=== PATIENT | female | born 1965 | race Hispanic/Latino ===

== ENCOUNTER 2020-02-28 10:21 | Outpatient (CLI) | payer OTHER ==
--- NOTE | 2020-02-28 10:52 | MMO ---
Bilateral MAMMO Bilat Screen [facility]. CLINICAL HISTORY: Patient is 55 years old and is seen for screening. The patient has no family history of breast cancer. The patient has no personal history of cancer. VIEWS: The views performed were: bilateral craniocaudal with tomosynthesis and bilateral mediolateral oblique with tomosynthesis. FILMS COMPARED: No prior imaging studies are available for comparison. This study has been interpreted with the assistance of computer-aided detection. MAMMOGRAM FINDINGS: There are scattered fibroglandular densities. There are no suspicious masses, suspicious calcifications, or areas of architectural distortion. IMPRESSION: THERE IS NO MAMMOGRAPHIC EVIDENCE OF MALIGNANCY. A ROUTINE FOLLOW-UP MAMMOGRAM IN 1 YEAR IS RECOMMENDED. THE RESULTS OF THIS EXAM WERE SENT TO THE PATIENT. ACR BI-RADS Category 1 - Negative MAMMOGRAPHY NOTE: 1. A negative mammogram report should not delay a biopsy if a dominant of clinically suspicious mass is present. 2. Approximately 10% to 15% of breast cancers are not detected by mammography. 3. Adenosis and dense breasts may obscure an underlying neoplasm. Reported by: JASPAL GRAHAM MD Electonically Signed: [id number]
== END 2020-02-28 10:22 | disposition home or self-care (01) ==
LOC: BICMAMMO 10:21
PROVIDERS: ATTEND Preventive Medicine Preventive Medicine/Occupational Environmental Medicine
DX: Z12.31 Encounter for screening mammogram for malignant neoplasm of breast (principal)
CPT/HCPCS: 77063; 77067

== ENCOUNTER 2020-03-20 09:41 | Day surgery (SDC) | payer OTHER ==
--- NOTE | 2020-03-19 06:42 | HP ---
HISTORY OF PRESENT ILLNESS: Beata Arroyo is a 55-year-old female, [place]-speaking only, presents for laparoscopic cholecystectomy due to symptomatic gallstones. The patient has had an ultrasound of her gallbladder on 03/09/2020, noting gallstones with normal bile duct caliber. Laboratory with CBC and comprehensive metabolic on 02/21/2020 are normal. ALLERGIES: NONE. SOCIAL HISTORY: Tobacco, none. Alcohol, none. PAST SURGICAL HISTORY: Noncontributory. PAST MEDICAL HISTORY: Noncontributory. REVIEW OF SYSTEMS: Ten-point noncontributory. FAMILY HISTORY: Noncontributory. PHYSICAL EXAMINATION: VITAL SIGNS: Weight 163 pounds, height 64 inches, blood pressure 139/76, heart rate 71, and temperature 97.5 degrees. HEAD, EARS, EYES, NOSE, AND THROAT: Unremarkable. Sclerae nonicteric. LUNGS: Clear to auscultation. CARDIAC: Regular rate and rhythm without murmur or gallop. ABDOMEN: Soft. Tenderness in the right lower quadrant, minimal. EXTREMITIES: Unremarkable. No ankle edema. SKIN: Nonjaundiced. ASSESSMENT AND PLAN: 1. Symptomatic cholecystitis. 2. Chronic biliary colic. 3. Cholelithiasis. Recommend laparoscopic video cholecystectomy. We will plan this as an outpatient next week. She has had recent labs and do not need to repeat them. Job ID: [id number]
[2020-03-19 11:45] VITALS: BMI 30.8
[~2020-03-20 09:41] MED LIST: Dexamethasone 20 MG/5 ML VIAL ONE; Lidocaine 1% PF 5 ML VIAL ONE; Metoclopramide HCl 10 MG/2 ML VIAL ONE; Ondansetron PF 4 MG/2 ML Vial ONE; PROPOFOL 200 MG/20 ML VIAL ONE; Rocuronium Bromide 10 MG/ML (10ML VIAL) ONE
[2020-03-20] MEDS ORDERED: Levofloxacin 500 mg/D5W 100 ml Premix Bag ONE (10:14)
[2020-03-20] MEDS ORDERED: Scopolamine 1.5 mg/72 hour Patch ONE (10:14)
[2020-03-20] MEDS ORDERED: Ketorolac Tromethamine 30 MG/ML VIAL ONE (10:14)
[2020-03-20] MEDS ORDERED: Acetaminophen 500 MG TAB ONE (10:14)
[2020-03-20] MEDS ORDERED: Lidocaine 1% w/Epinephrine 1:100K 20 ML VIAL ONE (10:50)
[2020-03-20] MEDS ORDERED: Bupivacaine PF 0.5% 30 ML VIAL ONE (10:50)
[2020-03-20] MEDS ORDERED: SUGAMMADEX SODIUM 200 MG/2 ML VIAL ONE ×2 (10:54→11:39)
[2020-03-20] MEDS ORDERED: Fentanyl 100 MCG/2 ML VIAL ONE ×3 (10:54→12:15)
[2020-03-20] MEDS ORDERED: Famotidine/PF 20 mg/2ml Vial ONE (10:54)
--- NOTE | 2020-03-20 16:50 | OP ---
DATE OF PROCEDURE: 03/20/2020 PREOPERATIVE DIAGNOSES: Chronic cholecystitis, cholelithiasis. POSTOPERATIVE DIAGNOSES: Chronic cholecystitis, cholelithiasis. PROCEDURE PERFORMED: Laparoscopic video cholecystectomy. ANESTHESIA: General, local of 0.5% Marcaine 30 mL mixed with 1% Xylocaine with epinephrine 20 mL. DESCRIPTION OF PROCEDURE: The patient was taken to the operating room, where under general anesthesia, abdomen was prepared with ChloraPrep and draped in routine fashion. Local anesthetic mixture was infiltrated into the skin and subcutaneous tissue about each port site. An infraumbilical incision was made, pneumoperitoneum to 15 mmHg was obtained with a Veress needle, replaced with a 5 port, video laparoscope inserted. Right subxiphoid incision was made and 11 port placed, right subcostal incision was made at midclavicular 5 ports placed. Liver appeared to be normal. Fundus of the gallbladder was grasped at the cephalad. It was full of stones cystic artery and duct dissected free. Critical view obtained. Cystic artery and duct doubly clipped proximally, divided and gallbladder was dissected free from liver bed obtaining good hemostasis prior to division of final peritoneal attachments. Gallbladder and multiple stones removed, submitted to pathology, good hemostasis was assured with cautery. Irrigant and pneumoperitoneum evacuated. All instruments were removed. All skin incisions were approximated with interrupted subdermal 4-0 Monocryl and [place] glue applied. The patient tolerated the procedure well. Job ID: [id number]
== END 2020-03-20 15:45 | disposition home or self-care (01) ==
LOC: SDC 09:41
PROVIDERS: ATTEND Specialist
PROC: 0FT44ZZ Resection of Gallbladder, Percutaneous Endoscopic Approach (ICD-10-PCS; principal; 2020-03-20)
DX: K80.64 Calculus of gallbladder and bile duct with chronic cholecystitis without obstruction (principal)
CPT/HCPCS: 88304; J1100; J1885; J1956; J2405; J2704; J2765; J3010; S0020; S0028

== ENCOUNTER 2021-06-23 09:10 | Outpatient (CLI) | payer OTHER | END 2021-06-23 09:11 | disposition home or self-care (01) | LOC: BICMAMMO 09:10 | PROVIDERS: ATTEND Nurse Practitioner Family | DX: Z12.31 Encounter for screening mammogram for malignant neoplasm of breast (principal) | CPT/HCPCS: 77063; 77067 ==

== ENCOUNTER 2022-05-17 22:04 | Emergency (ER) | payer OTHER | END 2022-05-18 01:43 | disposition home or self-care (01) | LOC: ERS 22:04 | DX: J06.9 Acute upper respiratory infection, unspecified (principal); Z20.822 Contact with and (suspected) exposure to COVID-19 | CPT/HCPCS: 36415; 71045; 84484; 87804; 93005; U0003; U0005 ==

== ENCOUNTER 2022-07-12 07:56 | Outpatient (CLI) | payer OTHER | END 2022-07-12 07:57 | disposition home or self-care (01) | LOC: BICMAMMO 07:56 | PROVIDERS: ATTEND Family Medicine | DX: Z12.31 Encounter for screening mammogram for malignant neoplasm of breast (principal); R92.8 Other abnormal and inconclusive findings on diagnostic imaging of breast | CPT/HCPCS: 77063; 77067 ==